=== PATIENT | male | born 1950 | race Caucasian/White ===

== ENCOUNTER 2017-07-04 10:09 | Inpatient (IN) | payer MEDICARE ==
[~2017-07-04] VITALS: Ht 167.6 cm; Wt 67.4 kg
[2017-07-04 10:30] LABS: ABG A-A DIFF O2 228.1 mmHg (10-20.0); ABG BASE EXCESS -22.3 mmol/L (-2.0-3.0); ABG CARBOXYHEMOGLOBIN 1.4 % (0.0-1.5); ABG HCO3 8.8 mmol/L (22.0-26.0); ABG METHEMOGLOBIN 0.3 % (0.0-1.5); ABG OXYGEN CONTENT 15.5 mL/dL (15.0-23.0); ABG OXYGEN SATURATION 99.7 % (95.0-98.0); ABG PCO2 34 mmHg (35-45); ABG PH 7.023 (7.35-7.450); ABG TOTAL HEMOGLOBIN 10.3 G/dL (12.0-18.0); O2 DEVICE,BLOOD GAS BAG VALVE MASK (ROOM AIR); PO2, ARTERIAL BG 453.1 mmHg (66.0-74.0); SITE, BLOOD GAS RT FEMORAL; SOURCE, BLOOD GAS ARTERIAL
[2017-07-04 11:14] LABS: BASOPHILS % (AUTO) 0.1 % (0.0-2.0); EOSINOPHILS # (AUTO) 0.01 K/uL (0.00-0.70); EOSINOPHILS % (AUTO) 0.13 % (1.0-6.0); HEMATOCRIT 29.9 % (41-53); HEMOGLOBIN 9.1 g/dL (13.5-17.5); LYMPHOCYTES # (AUTO) 0.5 K/uL (1.0-4.8); LYMPHOCYTES % (AUTO) 7.8 % (22.0-44.0); MEAN CORPUSCULAR HEMOGLOBIN 24.2 pg (26.0-34.0); MEAN CORPUSCULAR HGB CONC 30.4 G/dL (31.0-37.0); MEAN CORPUSCULAR VOLUME 79 fL (80-100); MONOCYTES # (AUTO) 0.2 K/uL (0.1-1.0); MONOCYTES % (AUTO) 3.5 % (2.0-9.0); NEUTROPHILS # (AUTO) 5.7 K/uL (1.8-7.7); PLATELET COUNT (AUTO) 123 K/uL (150-450); RED BLOOD CELL COUNT(AUTO) 3.77 MIL/uL (4.50-5.90); RED CELL DISTRIBUTION WIDTH 30.1 % (11.5-14.5)
[2017-07-04] MEDS ORDERED: PHENYLEPHRINE 200 MG/D5%-WATER 250 ML IV PRN (11:15)
[2017-07-04 11:19] LABS: ANION GAP 16 mmol/L (8-16); CARBON DIOXIDE 15 mmol/L (22-29); CHLORIDE 111 mmol/L (98-107); CREATININE 4.05 mg/dL (0.60-1.30); GLOMERULAR FILTR. RATE CALC 15 mL/min (>60); GLUCOSE,RANDOM 149 mg/dL (70-110); POTASSIUM 3.8 mmol/L (3.5-5.1); SODIUM SERUM 142 mmol/L (136-145); UREA NITROGEN, BLOOD 71 mg/dL (7-18)
[2017-07-04 11:20] LABS: NEUTROPHILS % (AUTO) 88.5 % (40.0-70.0)
[2017-07-04 11:27] LABS: TROPONIN I 0.04 ng/mL (0.00-0.05)
[2017-07-04 11:46] LABS: LACTIC ACID 2.3 mmol/L (0.4-2.0)
[2017-07-04 11:55] LABS: ALANINE AMINOTRANSFERASE 108 U/L (12-78); ALBUMIN 2.9 g/dL (3.4-5.0); ALKALINE PHOSPHATASE 115 U/L (46-116); ASPARTATE AMINOTRANSFERASE 167 U/L (15-37); BILIRUBIN,TOTAL 0.2 mg/dL (0.1-1.0); CREATINE KINASE MB 93.5 ng/mL (0-5); TOTAL PROTEIN, SERUM 7.7 g/dL (6.4-8.2)
[2017-07-04 11:59] LABS: CKMB RELATIVE INDEX 3.3 % (0.0-4.0); CREATINE KINASE, TOTAL 2873 U/L (39-308)
[2017-07-04 12:11] LABS: B-TYPE NATRIURETIC PEPTIDE 1560 pg/mL (0-100)
[2017-07-04 12:15] LABS: INR 1.3 (0.9-1.1); PROTHROMBIN TIME 14.1 SEC (9.4-11.6)
[2017-07-04] MEDS ORDERED: SODIUM BICARBONATE [ADULT] 8.4% 50 MEQ/50 ML SYRINGE IVP ONE (12:15)
[2017-07-04 12:35] LABS: AMPHET/METH SCREEN,URINE NEGATIVE (NEGATIVE); BARBITURATE SCREEN, URINE NEGATIVE (NEGATIVE); BENZODIAZEPINES SCREEN,URINE NEGATIVE (NEGATIVE); CANNABINOID SCREEN,URINE NEGATIVE (NEGATIVE); COCAINE SCREEN,URINE NEGATIVE (NEGATIVE); METHADONE SCREEN, URINE NEGATIVE (NEGATIVE); OPIATE SCREEN,URINE NEGATIVE (NEGATIVE)
[2017-07-04 12:36] LABS: PHENCYCLIDINE SCREEN,URINE NEGATIVE (NEGATIVE)
[2017-07-04 12:49] LABS: APPEARANCE,URINE TURBID (CLEAR); BILIRUBIN,URINE NEGATIVE (NEGATIVE); GLUCOSE, URINE (UA) NEGATIVE (NEGATIVE); KETONES,URINE TRACE mg/dL (NEGATIVE); LEUKOCYTE ESTERASE ,URINE LARGE (NEGATIVE); NITRATE,URINE NEGATIVE (NEGATIVE); OCCULT BLOOD,URINE LARGE (NEGATIVE); PROTEIN,URINE SEE CONFIRM (NEGATIVE); UROBILINOGEN,URINE 0.2 mg/dL (<=1.0)
[2017-07-04 13:01] LABS: BACTERIA,URINE Many /HPF (None Seen); RBC,URINE Full Field /HPF (0-2); SULFOSALICYLIC ACID,URINE 3+ (Negative); WBC,URINE Full Field /HPF (0-5)
[2017-07-04] MEDS: DOPamine HCL 400 MG/D5%-WATER 250 ML IV PRN (13:11)
[2017-07-04] MEDS: PROPOFOL 1000 MG/ISO-OSM 100 ML IV PRN (13:14)
[2017-07-04 13:41] LABS: ABG A-A DIFF O2 244.4 mmHg (10-20.0); ABG CARBOXYHEMOGLOBIN 1.8 % (0.0-1.5); ABG HCO3 15.5 mmol/L (22.0-26.0); ABG METHEMOGLOBIN 0.3 % (0.0-1.5); ABG OXYGEN CONTENT 13.2 mL/dL (15.0-23.0); ABG OXYGEN SATURATION 93.8 % (95.0-98.0); ABG OXYHEMOGLOBIN 91.8 % (94.0-100.0); ABG PCO2 37 mmHg (35-45); ABG PH 7.238 (7.35-7.450); ABG TOTAL HEMOGLOBIN 10.2 G/dL (12.0-18.0); SOURCE, BLOOD GAS ARTERIAL; TEMPERATURE, FAHRENHEIT, BG 97.8 FAHREN (96.0-98.6)
[2017-07-04 13:42] LABS: O2 DEVICE,BLOOD GAS VENTILATOR (ROOM AIR); PEEP,BG 5 cm H2O; SITE, BLOOD GAS LFT RADIAL; VT, ABG 500 ml
[2017-07-04] MEDS ORDERED: 0.9% SODIUM CHLORIDE 10 ML SYRINGE IVP PRN (13:45)
[2017-07-04] MEDS ORDERED: PIPERACILLIN/TAZO 3.375 GM/D5W 50 ML IV ONE (13:45)
[2017-07-04 16:52] LABS: LACTIC ACID 0.9 mmol/L (0.4-2.0)
[2017-07-04] MEDS ORDERED: SODIUM BICARBONATE 150 MEQ in DEXTROSE 5%-WATER 1,000 ML IV ONE (17:00)
[2017-07-04 17:03] LABS: GLUCOSE,POINT OF CARE 164 MG/DL (70-110)
[2017-07-04] MEDS ORDERED: VANCOMYCIN HCL 1.5 GM in DEXTROSE 5%-WATER 250 ML IV ONE (20:00)
[2017-07-04] MEDS ORDERED: SODIUM CHLORIDE 0.9% 250 ML IV ONE ×2 (20:15→22:18)
[2017-07-04] MEDS ORDERED: VANCOMYCIN HCL 1 GM/D5% WATER 200 ML IV PRN (21:15)
[2017-07-04] MEDS: PIPERACILLIN SODIUM/TAZOBACTAM 2.25 GM in DEXTROSE 5%-WATER 50 ML IV SCH (22:14)
[2017-07-04 22:36] LABS: ABG A-A DIFF O2 344.3 mmHg (10-20.0); ABG BASE EXCESS -14.4 mmol/L (-2.0-3.0); ABG CARBOXYHEMOGLOBIN 1.9 % (0.0-1.5); ABG HCO3 13.7 mmol/L (22.0-26.0); ABG METHEMOGLOBIN 0.4 % (0.0-1.5); ABG OXYGEN CONTENT 13.5 mL/dL (15.0-23.0); ABG OXYGEN SATURATION 94.8 % (95.0-98.0); ABG OXYHEMOGLOBIN 92.6 % (94.0-100.0); ABG PCO2 33 mmHg (35-45); ABG PH 7.223 (7.35-7.450); ABG TOTAL HEMOGLOBIN 10.3 G/dL (12.0-18.0); O2 DEVICE,BLOOD GAS VENTILATOR (ROOM AIR); PO2, ARTERIAL BG 55.6 mmHg (79.0-87.0); SITE, BLOOD GAS RT RADIAL; SOURCE, BLOOD GAS ARTERIAL; TEMPERATURE, FAHRENHEIT, BG 86.8 FAHREN (96.0-98.6); VT, ABG 500 ml
[2017-07-04 22:37] LABS: PEEP,BG 5 cm H2O
[2017-07-04 22:48] VITALS: BP 145/78
[2017-07-05] VITALS: BP 147/84
[2017-07-05] MEDS: PROPOFOL 1000 MG/ISO-OSM 100 ML IV PRN ×6 (01:19→20:23)
[2017-07-05 01:31] LABS: CALCIUM, TOTAL 7.8 mg/dL (8.8-10.5); CREATININE 3.98 mg/dL (0.60-1.30); POTASSIUM 4.1 mmol/L (3.5-5.1)
[2017-07-05 01:34] LABS: MAGNESIUM 1.9 mg/dL (1.80-2.40); PHOSPHORUS 6.1 mg/dL (2.5-4.9)
[2017-07-05] MEDS ORDERED: 0.9% SODIUM CHLORIDE 10 ML SYRINGE IVP PRN (03:00)
[2017-07-05] MEDS: PIPERACILLIN SODIUM/TAZOBACTAM 2.25 GM in DEXTROSE 5%-WATER 50 ML IV SCH ×4 (03:10→23:09)
[2017-07-05] MEDS: DOPamine HCL 400 MG/D5%-WATER 250 ML IV PRN (03:48)
[2017-07-05] MEDS ORDERED: SODIUM CHLORIDE 0.9% 500 ML IV ONE (03:56)
[2017-07-05 04:00] VITALS: BP 125/62
[2017-07-05 05:00] LABS: ABG A-A DIFF O2 352.8 mmHg (10-20.0); ABG BASE EXCESS -14.4 mmol/L (-2.0-3.0); ABG CARBOXYHEMOGLOBIN 1.6 % (0.0-1.5); ABG HCO3 13.7 mmol/L (22.0-26.0); ABG METHEMOGLOBIN 0.4 % (0.0-1.5); ABG OXYGEN CONTENT 12.8 mL/dL (15.0-23.0); ABG OXYGEN SATURATION 94.3 % (95.0-98.0); ABG OXYHEMOGLOBIN 92.4 % (94.0-100.0); ABG PCO2 30 mmHg (35-45); ABG PH 7.255 (7.35-7.450); ABG TOTAL HEMOGLOBIN 9.8 G/dL (12.0-18.0); PO2, ARTERIAL BG 51.3 mmHg (79.0-87.0); SOURCE, BLOOD GAS ARTERIAL
[2017-07-05 05:01] LABS: O2 DEVICE,BLOOD GAS VENTILATOR (ROOM AIR); PEEP,BG 5 cm H2O; SITE, BLOOD GAS RT RADIAL; VT, ABG 500 ml
[2017-07-05 05:23] LABS: INR 1.3 (0.9-1.1)
[2017-07-05 05:30] LABS: BASOPHILS # (AUTO) 0.01 K/uL (0.00-0.20); BASOPHILS % (AUTO) 0.1 % (0.0-2.0); EOSINOPHILS # (AUTO) 0.02 K/uL (0.00-0.70); EOSINOPHILS % (AUTO) 0.16 % (1.0-6.0); HEMATOCRIT 28.7 % (41-53); HEMOGLOBIN 8.9 g/dL (13.5-17.5); LYMPHOCYTES # (AUTO) 0.6 K/uL (1.0-4.8); MEAN CORPUSCULAR HEMOGLOBIN 24.4 pg (26.0-34.0); MEAN CORPUSCULAR VOLUME 79 fL (80-100); MONOCYTES # (AUTO) 0.5 K/uL (0.1-1.0); MONOCYTES % (AUTO) 3.7 % (2.0-9.0); NEUTROPHILS # (AUTO) 11.2 K/uL (1.8-7.7); PLATELET COUNT (AUTO) 138 K/uL (150-450); RED BLOOD CELL COUNT(AUTO) 3.64 MIL/uL (4.50-5.90); RED CELL DISTRIBUTION WIDTH 30.1 % (11.5-14.5)
[2017-07-05 05:47] LABS: ALBUMIN 2.5 g/dL (3.4-5.0); BILIRUBIN,TOTAL 0.6 mg/dL (0.1-1.0); CALCIUM, TOTAL 7.8 mg/dL (8.8-10.5); CREATININE 3.97 mg/dL (0.60-1.30); PHOSPHORUS 6.2 mg/dL (2.5-4.9); TOTAL PROTEIN, SERUM 6.8 g/dL (6.4-8.2)
[2017-07-05 08:00] VITALS: BP 117/68
[2017-07-05] MEDS: PANTOPRAZOLE SODIUM 40 MG/VIAL IVP SCH (08:09)
[2017-07-05] MEDS ORDERED: BUMETANIDE 0.25 MG/ML 4 ML VIAL IVP ONE (09:00)
[2017-07-05] MEDS: CITRIC ACID/SODIUM CITRATE 30 ML SOLUTION UDCUP NG SCH ×4 (09:54→20:22)
[2017-07-05] MEDS ORDERED: DEXTROSE 50%-WATER 25 GM/50 ML SYRINGE IVP PRN (10:45)
[2017-07-05 11:17] LABS: MEAN CORPUSCULAR HEMOGLOBIN 24.3 pg (26.0-34.0); MEAN CORPUSCULAR HGB CONC 31.1 G/dL (31.0-37.0); MEAN CORPUSCULAR VOLUME 78 fL (80-100); PLATELET COUNT (AUTO) 145 K/uL (150-450); RED BLOOD CELL COUNT(AUTO) 3.72 MIL/uL (4.50-5.90); RED CELL DISTRIBUTION WIDTH 29.9 % (11.5-14.5)
[2017-07-05 11:23] LABS: SOURCE, BLOOD GAS ARTERIAL
[2017-07-05 11:27] LABS: ABG A-A DIFF O2 349.8 mmHg (10-20.0); ABG HCO3 15.4 mmol/L (22.0-26.0); ABG METHEMOGLOBIN 0.2 % (0.0-1.5); ABG OXYGEN SATURATION 94.6 % (95.0-98.0); ABG OXYHEMOGLOBIN 93.5 % (94.0-100.0); ABG PCO2 30 mmHg (35-45); ABG PH 7.299 (7.35-7.450); ABG TOTAL HEMOGLOBIN 9.8 G/dL (12.0-18.0)
[2017-07-05 11:28] LABS: O2 DEVICE,BLOOD GAS VENTILATOR (ROOM AIR); PEEP,BG 5 cm H2O; SITE, BLOOD GAS RT RADIAL; VT, ABG 500 ml
[2017-07-05 11:36] LABS: ALBUMIN 2.4 g/dL (3.4-5.0); BILIRUBIN,TOTAL 0.6 mg/dL (0.1-1.0); CALCIUM, TOTAL 7.5 mg/dL (8.8-10.5); CREATININE 4.06 mg/dL (0.60-1.30); MAGNESIUM 1.9 mg/dL (1.80-2.40); PHOSPHORUS 5.8 mg/dL (2.5-4.9); POTASSIUM 3.8 mmol/L (3.5-5.1); TOTAL PROTEIN, SERUM 6.8 g/dL (6.4-8.2)
[2017-07-05] MEDS ORDERED: SODIUM CHLORIDE 0.9% 250 ML IV ONE ×2 (11:51→20:17)
[2017-07-05] MEDS: INSULIN ASPART 100 UNITS/ML SQ PRN ×2 (11:57→17:08)
[2017-07-05 12:00] VITALS: BP 110/74
[2017-07-05 12:17] LABS: BAND NEUTROPHILS % (MANUAL) 1 % (1-5); EOSINOPHILS % (MANUAL) 1 % (1-6); LYMPHOCYTES % (MANUAL) 5 % (22-44); MONOCYTES % (MANUAL) 4 % (2-9); SEGMENTED NEUTROPHILS % 89 % (40-70)
[2017-07-05 12:22] LABS: GLUCOSE,POINT OF CARE 308 MG/DL (70-110)
[2017-07-05] MEDS ORDERED: ALBUMIN HUMAN ONE (14:10)
[2017-07-05] MEDS: ALBUMIN HUMAN 25%-25GM/100ML 100 ML IV SCH ×3 (15:15→19:02)
[2017-07-05] MEDS: BUMETANIDE 0.25 MG/ML 4 ML VIAL IVP SCH ×2 (15:17→20:22)
[2017-07-05 15:36] LABS: INFLUENZA TYPE A NEGATIVE FOR TYPE A (NEGATIVE); INFLUENZA TYPE B NEGATIVE FOR TYPE B (NEGATIVE)
[2017-07-05] MEDS ORDERED: PHENYLEPHRINE 200 MG/D5%-WATER 250 ML IV PRN (15:50)
[2017-07-05] MEDS ORDERED: DOPamine HCL 400 MG/D5%-WATER 250 ML IV PRN (15:50)
[2017-07-05 16:00] VITALS: BP 93/68
[2017-07-05] MEDS: NOREPINEPHRINE 4 MG/D5%-WATER 250 ML IV PRN (16:13)
[2017-07-05 18:28] LABS: HEMATOCRIT 26.1 % (41-53); HEMOGLOBIN 8.2 g/dL (13.5-17.5); MEAN CORPUSCULAR HEMOGLOBIN 24.2 pg (26.0-34.0); MEAN CORPUSCULAR HGB CONC 31.4 G/dL (31.0-37.0); MEAN CORPUSCULAR VOLUME 77 fL (80-100); PLATELET COUNT (AUTO) 144 K/uL (150-450); RED BLOOD CELL COUNT(AUTO) 3.39 MIL/uL (4.50-5.90); RED CELL DISTRIBUTION WIDTH 29.3 % (11.5-14.5)
[2017-07-05 18:52] LABS: CALCIUM, TOTAL 7.2 mg/dL (8.8-10.5); CREATININE 4.13 mg/dL (0.60-1.30); MAGNESIUM 1.7 mg/dL (1.80-2.40); PHOSPHORUS 5.2 mg/dL (2.5-4.9); POTASSIUM 3.5 mmol/L (3.5-5.1)
[2017-07-05 19:32] LABS: BAND NEUTROPHILS % (MANUAL) 11 % (1-5); LYMPHOCYTES % (MANUAL) 7 % (22-44); MONOCYTES % (MANUAL) 4 % (2-9); SEGMENTED NEUTROPHILS % 78 % (40-70)
[2017-07-05 19:33] LABS: PLATELET MORPHOLOGY COMMENT LARGE PLTS PRESENT
[2017-07-05 20:00] VITALS: BP 113/67
[2017-07-05] MEDS: MUPIROCIN CALCIUM 2% 22 GM OINTMENT NASAL SCH (20:22)
[2017-07-05] MEDS: LEVOFLOXACIN 250 MG/D5% WATER 50 ML IV SCH (20:22)
[2017-07-06] VITALS: BP 112/65
[2017-07-06] MEDS: NOREPINEPHRINE 4 MG/D5%-WATER 250 ML IV PRN ×3 (00:20→17:28)
[2017-07-06] MEDS: PROPOFOL 1000 MG/ISO-OSM 100 ML IV PRN ×6 (00:57→20:28)
[2017-07-06] MEDS: INSULIN ASPART 100 UNITS/ML SQ PRN ×2 (01:29→06:48)
[2017-07-06 04:00] VITALS: BP 109/65
[2017-07-06 05:12] LABS: GLUCOSE,POINT OF CARE 293 MG/DL (70-110)
[2017-07-06 05:33] LABS: GLUCOSE,POINT OF CARE 219 MG/DL (70-110)
[2017-07-06 05:38] LABS: ALBUMIN 2.8 g/dL (3.4-5.0); BILIRUBIN,TOTAL 0.5 mg/dL (0.1-1.0); CALCIUM, TOTAL 6.8 mg/dL (8.8-10.5); CREATININE 4.34 mg/dL (0.60-1.30); MAGNESIUM 1.6 mg/dL (1.80-2.40); POTASSIUM 3.6 mmol/L (3.5-5.1); TOTAL PROTEIN, SERUM 6.6 g/dL (6.4-8.2); VANCOMYCIN,RANDOM 17.4 mcg/mL (25.0-50.0)
[2017-07-06 07:07] LABS: GLUCOSE,POINT OF CARE 209 MG/DL (70-110)
[2017-07-06] MEDS ORDERED: SODIUM CHLORIDE 0.9% 250 ML IV ONE (07:49)
[2017-07-06 08:00] VITALS: BP 107/62
[2017-07-06] MEDS: PANTOPRAZOLE SODIUM 40 MG/VIAL IVP SCH (08:00)
[2017-07-06] MEDS ORDERED: MAGNESIUM SULFATE 1 GM in DEXTROSE 5%-WATER 50 ML IV ONE (08:00)
[2017-07-06] MEDS: PIPERACILLIN SODIUM/TAZOBACTAM 2.25 GM in DEXTROSE 5%-WATER 50 ML IV SCH ×3 (08:00→23:20)
[2017-07-06] MEDS: MUPIROCIN CALCIUM 2% 22 GM OINTMENT NASAL SCH ×2 (08:01→20:30)
[2017-07-06] MEDS: CITRIC ACID/SODIUM CITRATE 30 ML SOLUTION UDCUP NG SCH ×3 (08:01→20:27)
[2017-07-06] MEDS: BUMETANIDE 0.25 MG/ML 4 ML VIAL IVP SCH ×3 (08:01→20:28)
[2017-07-06] MEDS ORDERED: CALCIUM GLUCONATE 1,000 MG in DEXTROSE 5%-WATER 50 ML IV ONE (08:40)
[2017-07-06 08:58] LABS: PHOSPHORUS 5.2 mg/dL (2.5-4.9)
[2017-07-06] MEDS ORDERED: VANCOMYCIN HCL 1 GM/D5% WATER 200 ML IV ONE (09:00)
[2017-07-06 11:07] LABS: HEMATOCRIT 25.5 % (41-53); MEAN CORPUSCULAR HEMOGLOBIN 24.5 pg (26.0-34.0); MEAN CORPUSCULAR HGB CONC 31.5 G/dL (31.0-37.0); MEAN CORPUSCULAR VOLUME 78 fL (80-100); PLATELET COUNT (AUTO) 155 K/uL (150-450); RED BLOOD CELL COUNT(AUTO) 3.28 MIL/uL (4.50-5.90); RED CELL DISTRIBUTION WIDTH 30.2 % (11.5-14.5)
[2017-07-06] MEDS ORDERED: ASPIRIN 81 MG EC TABLET PO SCH (11:15)
[2017-07-06 11:30] LABS: BAND NEUTROPHILS % (MANUAL) 18 % (1-5); LYMPHOCYTES % (MANUAL) 7 % (22-44); MONOCYTES % (MANUAL) 3 % (2-9); SEGMENTED NEUTROPHILS % 72 % (40-70)
[2017-07-06 12:00] VITALS: BP 102/54
[2017-07-06] MEDS: INSULIN REGULAR, HUMAN 100 UNITS/ML SQ PRN ×2 (12:03→17:29)
[2017-07-06] MEDS: PRAVASTATIN SODIUM 20 MG TABLET PO SCH (12:58)
[2017-07-06] MEDS: ASPIRIN 81 MG CHEWABLE TABLET PO SCH (12:58)
[2017-07-06] MEDS ORDERED: LIDOCAINE HCL/PF 2% 5 ML SYRINGE IVP ONE (14:49)
[2017-07-06] MEDS ORDERED: SODIUM BICARBONATE [ADULT] 8.4% 50 MEQ/50 ML SYRINGE IVP ONE (14:49)
[2017-07-06] MEDS ORDERED: EPINEPHrine 1:10,000 [1 MG/10 ML] SYRINGE IVP ONE (14:49)
[2017-07-06 16:00] VITALS: BP 110/63
[2017-07-06 20:00] VITALS: BP 86/59
[2017-07-06] MEDS: LEVOFLOXACIN 250 MG/D5% WATER 50 ML IV SCH (20:29)
[2017-07-07] VITALS: BP 118/69
[2017-07-07] MEDS: INSULIN REGULAR, HUMAN 100 UNITS/ML SQ PRN ×3 (00:16→13:17)
[2017-07-07] MEDS: PROPOFOL 1000 MG/ISO-OSM 100 ML IV PRN ×3 (00:19→21:06)
[2017-07-07 04:00] VITALS: BP 119/47
[2017-07-07] MEDS ORDERED: SODIUM CHLORIDE 0.9% 500 ML IV ONE (04:28)
[2017-07-07 04:52] LABS: GLUCOSE,POINT OF CARE 196 MG/DL (70-110)
[2017-07-07 04:52] LABS: GLUCOSE,POINT OF CARE 192 MG/DL (70-110)
[2017-07-07 04:52] LABS: GLUCOSE,POINT OF CARE 213 MG/DL (70-110)
[2017-07-07 04:52] LABS: GLUCOSE,POINT OF CARE 235 MG/DL (70-110)
[2017-07-07 06:01] LABS: BASOPHILS % (AUTO) 0.1 % (0.0-2.0); HEMATOCRIT 24.4 % (41-53); HEMOGLOBIN 7.8 g/dL (13.5-17.5); LYMPHOCYTES # (AUTO) 0.5 K/uL (1.0-4.8); LYMPHOCYTES % (AUTO) 4.1 % (22.0-44.0); MEAN CORPUSCULAR HEMOGLOBIN 24.6 pg (26.0-34.0); MEAN CORPUSCULAR HGB CONC 31.8 G/dL (31.0-37.0); MEAN CORPUSCULAR VOLUME 77 fL (80-100); MONOCYTES % (AUTO) 7.7 % (2.0-9.0); NEUTROPHILS # (AUTO) 10.9 K/uL (1.8-7.7); PLATELET COUNT (AUTO) 135 K/uL (150-450); RED BLOOD CELL COUNT(AUTO) 3.16 MIL/uL (4.50-5.90); RED CELL DISTRIBUTION WIDTH 29.8 % (11.5-14.5)
[2017-07-07 06:57] LABS: NEUTROPHILS % (AUTO) 87.1 % (40.0-70.0)
[2017-07-07 06:58] LABS: ALBUMIN 2.4 g/dL (3.4-5.0); BILIRUBIN,TOTAL 0.4 mg/dL (0.1-1.0); CALCIUM, TOTAL 7.2 mg/dL (8.8-10.5); CREATININE 4.69 mg/dL (0.60-1.30); MAGNESIUM 1.8 mg/dL (1.80-2.40); TOTAL PROTEIN, SERUM 6.4 g/dL (6.4-8.2)
[2017-07-07 07:23] LABS: POTASSIUM 2.9 mmol/L (3.5-5.1)
[2017-07-07 07:45] LABS: VANCOMYCIN,RANDOM 25.8 mcg/mL (25.0-50.0)
[2017-07-07 08:00] VITALS: BP 114/47
[2017-07-07] MEDS: PIPERACILLIN SODIUM/TAZOBACTAM 2.25 GM in DEXTROSE 5%-WATER 50 ML IV SCH ×2 (08:05→16:09)
[2017-07-07] MEDS: POTASSIUM CHL 10 MEQ/WATER 50 ML IV SCH ×3 (08:06→11:35)
[2017-07-07] MEDS ORDERED: SODIUM CHLORIDE 0.9% 250 ML IV ONE (08:48)
[2017-07-07] MEDS: PANTOPRAZOLE SODIUM 40 MG/VIAL IVP SCH (08:51)
[2017-07-07] MEDS: BUMETANIDE 0.25 MG/ML 4 ML VIAL IVP SCH (08:51)
[2017-07-07] MEDS: CITRIC ACID/SODIUM CITRATE 30 ML SOLUTION UDCUP NG SCH ×2 (08:52→21:04)
[2017-07-07] MEDS: PRAVASTATIN SODIUM 20 MG TABLET PO SCH (08:52)
[2017-07-07] MEDS: ASPIRIN 81 MG CHEWABLE TABLET PO SCH (08:52)
[2017-07-07] MEDS: MUPIROCIN CALCIUM 2% 22 GM OINTMENT NASAL SCH ×2 (08:52→21:04)
[2017-07-07] MEDS: NOREPINEPHRINE 4 MG/D5%-WATER 250 ML IV PRN (11:37)
[2017-07-07 12:00] VITALS: BP 118/69
[2017-07-07 15:32] LABS: GLUCOSE,POINT OF CARE 194 MG/DL (70-110)
[2017-07-07 16:00] VITALS: BP 107/39
[2017-07-07 17:53] LABS: GLUCOSE,POINT OF CARE 183 MG/DL (70-110)
[2017-07-07 20:00] VITALS: BP 116/76
[2017-07-07] MEDS: LEVOFLOXACIN 250 MG/D5% WATER 50 ML IV SCH (20:43)
[2017-07-08] VITALS: BP 112/53
[2017-07-08] MEDS: PIPERACILLIN SODIUM/TAZOBACTAM 2.25 GM in DEXTROSE 5%-WATER 50 ML IV SCH ×3 (00:41→16:48)
[2017-07-08] MEDS: INSULIN REGULAR, HUMAN 100 UNITS/ML SQ PRN ×4 (00:42→18:26)
[2017-07-08 04:00] VITALS: BP 114/47
[2017-07-08 05:06] LABS: EOSINOPHILS # (AUTO) 0.32 K/uL (0.00-0.70); EOSINOPHILS % (AUTO) 2.94 % (1.0-6.0); HEMATOCRIT 23.9 % (41-53); HEMOGLOBIN 7.6 g/dL (13.5-17.5); LYMPHOCYTES # (AUTO) 0.6 K/uL (1.0-4.8); LYMPHOCYTES % (AUTO) 5.2 % (22.0-44.0); MEAN CORPUSCULAR HEMOGLOBIN 24.2 pg (26.0-34.0); MEAN CORPUSCULAR HGB CONC 31.8 G/dL (31.0-37.0); MEAN CORPUSCULAR VOLUME 76 fL (80-100); MONOCYTES # (AUTO) 0.9 K/uL (0.1-1.0); MONOCYTES % (AUTO) 8.1 % (2.0-9.0); NEUTROPHILS # (AUTO) 9.2 K/uL (1.8-7.7); NEUTROPHILS % (AUTO) 83.8 % (40.0-70.0); PLATELET COUNT (AUTO) 119 K/uL (150-450); RED BLOOD CELL COUNT(AUTO) 3.13 MIL/uL (4.50-5.90); RED CELL DISTRIBUTION WIDTH 30.1 % (11.5-14.5)
[2017-07-08 05:28] LABS: ALBUMIN 2.2 g/dL (3.4-5.0); BILIRUBIN,TOTAL 0.4 mg/dL (0.1-1.0); CALCIUM, TOTAL 7.6 mg/dL (8.8-10.5); CREATININE 4.82 mg/dL (0.60-1.30); MAGNESIUM 1.8 mg/dL (1.80-2.40); POTASSIUM 3.5 mmol/L (3.5-5.1); TOTAL PROTEIN, SERUM 6.7 g/dL (6.4-8.2)
[2017-07-08 05:53] LABS: GLUCOSE,POINT OF CARE 182 MG/DL (70-110)
[2017-07-08] MEDS: PROPOFOL 1000 MG/ISO-OSM 100 ML IV PRN (06:05)
[2017-07-08] MEDS: AMINO ACIDS/PROTEIN HYDROLYS 30 ML TUBE PO SCH (07:24)
[2017-07-08 08:00] VITALS: BP 114/62
[2017-07-08] MEDS ORDERED: VANCOMYCIN HCL 1 GM/D5% WATER 200 ML IV ONE (08:00)
[2017-07-08] MEDS ORDERED: BUMETANIDE 0.25 MG/ML 4 ML VIAL IVP SCH (09:00)
[2017-07-08] MEDS: PANTOPRAZOLE SODIUM 40 MG/VIAL IVP SCH (09:16)
[2017-07-08] MEDS: MUPIROCIN CALCIUM 2% 22 GM OINTMENT NASAL SCH ×2 (09:17→20:37)
[2017-07-08] MEDS: PRAVASTATIN SODIUM 20 MG TABLET PO SCH (09:18)
[2017-07-08] MEDS: MULTIVITAMINS WITH MINERALS, THERAPEUTIC 15 ML UDCUP NG SCH (09:18)
[2017-07-08] MEDS: ASPIRIN 81 MG CHEWABLE TABLET PO SCH (09:18)
[2017-07-08] MEDS: CITRIC ACID/SODIUM CITRATE 30 ML SOLUTION UDCUP NG SCH ×2 (09:18→20:38)
[2017-07-08 10:10] LABS: ABG A-A DIFF O2 86.7 mmHg (10-20.0); ABG BASE EXCESS -4.7 mmol/L (-2.0-3.0); ABG CARBOXYHEMOGLOBIN 3.3 % (0.0-1.5); ABG HCO3 20.9 mmol/L (22.0-26.0); ABG METHEMOGLOBIN 0.1 % (0.0-1.5); ABG OXYGEN CONTENT 10.4 mL/dL (15.0-23.0); ABG OXYGEN SATURATION 96.6 % (95.0-98.0); ABG OXYHEMOGLOBIN 93.3 % (94.0-100.0); ABG PCO2 36 mmHg (35-45); ABG PH 7.371 (7.35-7.450); PO2, ARTERIAL BG 84.4 mmHg (79.0-87.0); SOURCE, BLOOD GAS ARTERIAL; TEMPERATURE, FAHRENHEIT, BG 98.6 FAHREN (96.0-98.6)
[2017-07-08 10:22] LABS: ABG TOTAL HEMOGLOBIN 7.8 G/dL (12.0-18.0)
[2017-07-08 10:23] LABS: O2 DEVICE,BLOOD GAS VENTILATOR (ROOM AIR); SITE, BLOOD GAS RT RADIAL
[2017-07-08 10:24] LABS: PEEP,BG 5 cm H2O; VT, ABG 500 ml
[2017-07-08 12:00] VITALS: BP 113/55
[2017-07-08 12:23] LABS: GLUCOSE,POINT OF CARE 179 MG/DL (70-110)
[2017-07-08 12:41] LABS: ABG A-A DIFF O2 90.6 mmHg (10-20.0); ABG BASE EXCESS -5.3 mmol/L (-2.0-3.0); ABG CARBOXYHEMOGLOBIN 1.1 % (0.0-1.5); ABG HCO3 20.5 mmol/L (22.0-26.0); ABG METHEMOGLOBIN 0.3 % (0.0-1.5); ABG OXYGEN SATURATION 95.9 % (95.0-98.0); ABG OXYHEMOGLOBIN 94.6 % (94.0-100.0); ABG PCO2 33 mmHg (35-45); ABG PH 7.392 (7.35-7.450); ABG TOTAL HEMOGLOBIN 8.2 G/dL (12.0-18.0); PO2, ARTERIAL BG 84.4 mmHg (79.0-87.0); SOURCE, BLOOD GAS ARTERIAL; TEMPERATURE, FAHRENHEIT, BG 98.6 FAHREN (96.0-98.6)
[2017-07-08 12:42] LABS: CPAP, BG 0 cm H2O; O2 DEVICE,BLOOD GAS VENTILATOR (ROOM AIR); PEEP,BG 0 cm H2O; PRESSURE SUPPORT, BG 8 cm H2O; SITE, BLOOD GAS RT RADIAL; SPONTANEOUS VT, BG 720 ml; VENT MODE, BG SPONTANEOUS (ROOM AIR)
[2017-07-08 14:53] LABS: C.DIFF TOXINS A&B, Stool Negative (Negative)
[2017-07-08 14:55] LABS: C.DIFF GDH ANTIGEN, Stool Positive (Negative)
[2017-07-08 16:00] VITALS: BP 103/40
[2017-07-08 20:00] VITALS: BP 114/55
[2017-07-08 20:12] LABS: GLUCOSE,POINT OF CARE 178 MG/DL (70-110)
[2017-07-08 20:12] LABS: GLUCOSE,POINT OF CARE 171 MG/DL (70-110)
[2017-07-08] MEDS: LEVOFLOXACIN 250 MG/D5% WATER 50 ML IV SCH (20:37)
[2017-07-08] MEDS ORDERED: SODIUM CHLORIDE 0.9% 50 ML ONE (22:26)
[2017-07-08] MEDS: MetroNIDAZOLE 500 MG TABLET PO SCH (23:42)
[2017-07-09] VITALS: BP 111/65
[2017-07-09] MEDS: PROPOFOL 1000 MG/ISO-OSM 100 ML IV PRN (02:29)
[2017-07-09 04:00] VITALS: BP 115/55
[2017-07-09 05:16] LABS: BASOPHILS % (AUTO) 0.1 % (0.0-2.0); EOSINOPHILS % (AUTO) 3.2 % (1.0-6.0); HEMOGLOBIN 7.3 g/dL (13.5-17.5); LYMPHOCYTES # (AUTO) 0.7 K/uL (1.0-4.8); LYMPHOCYTES % (AUTO) 6.9 % (22.0-44.0); MEAN CORPUSCULAR HEMOGLOBIN 24.4 pg (26.0-34.0); MEAN CORPUSCULAR HGB CONC 31.6 G/dL (31.0-37.0); MEAN CORPUSCULAR VOLUME 77 fL (80-100); MONOCYTES # (AUTO) 0.7 K/uL (0.1-1.0); MONOCYTES % (AUTO) 7.6 % (2.0-9.0); NEUTROPHILS % (AUTO) 82.2 % (40.0-70.0); PLATELET COUNT (AUTO) 126 K/uL (150-450); RED BLOOD CELL COUNT(AUTO) 2.97 MIL/uL (4.50-5.90); RED CELL DISTRIBUTION WIDTH 29.8 % (11.5-14.5)
[2017-07-09 05:22] LABS: ALBUMIN 2.2 g/dL (3.4-5.0); BILIRUBIN,TOTAL 0.4 mg/dL (0.1-1.0); CALCIUM, TOTAL 8.2 mg/dL (8.8-10.5); CREATININE 4.65 mg/dL (0.60-1.30); MAGNESIUM 1.8 mg/dL (1.80-2.40); POTASSIUM 3.2 mmol/L (3.5-5.1); TOTAL PROTEIN, SERUM 6.8 g/dL (6.4-8.2)
[2017-07-09] MEDS: INSULIN REGULAR, HUMAN 100 UNITS/ML SQ PRN ×4 (05:54→17:27)
[2017-07-09 06:07] LABS: GLUCOSE,POINT OF CARE 143 MG/DL (70-110)
[2017-07-09 06:08] LABS: GLUCOSE,POINT OF CARE 162 MG/DL (70-110)
[2017-07-09] MEDS: MetroNIDAZOLE 500 MG TABLET PO SCH ×2 (07:18→16:29)
[2017-07-09] MEDS: AMINO ACIDS/PROTEIN HYDROLYS 30 ML TUBE PO SCH (07:18)
[2017-07-09 08:00] VITALS: BP 112/50
[2017-07-09] MEDS: ASPIRIN 81 MG CHEWABLE TABLET PO SCH (08:00)
[2017-07-09] MEDS: PRAVASTATIN SODIUM 20 MG TABLET PO SCH (08:00)
[2017-07-09] MEDS: PANTOPRAZOLE SODIUM 40 MG/VIAL IVP SCH (08:00)
[2017-07-09] MEDS: MULTIVITAMINS WITH MINERALS, THERAPEUTIC 15 ML UDCUP NG SCH (08:00)
[2017-07-09] MEDS: CITRIC ACID/SODIUM CITRATE 30 ML SOLUTION UDCUP NG SCH ×2 (08:00→20:30)
[2017-07-09] MEDS: MUPIROCIN CALCIUM 2% 22 GM OINTMENT NASAL SCH ×2 (08:00→20:31)
[2017-07-09] MEDS: POTASSIUM CHL 10 MEQ/WATER 50 ML IV SCH ×2 (08:01→09:10)
[2017-07-09 08:13] LABS: ABG A-A DIFF O2 114.3 mmHg (10-20.0); ABG BASE EXCESS -4.4 mmol/L (-2.0-3.0); ABG CARBOXYHEMOGLOBIN 1.6 % (0.0-1.5); ABG METHEMOGLOBIN 0.5 % (0.0-1.5); ABG OXYGEN CONTENT 9.6 mL/dL (15.0-23.0); ABG OXYHEMOGLOBIN 86.2 % (94.0-100.0); ABG PCO2 37 mmHg (35-45); ABG PH 7.368 (7.35-7.450); PO2, ARTERIAL BG 56.1 mmHg (79.0-87.0); SOURCE, BLOOD GAS ARTERIAL; TEMPERATURE, FAHRENHEIT, BG 97.9 FAHREN (96.0-98.6)
[2017-07-09 08:14] LABS: ABG TOTAL HEMOGLOBIN 7.9 G/dL (12.0-18.0); O2 DEVICE,BLOOD GAS VENTILATOR (ROOM AIR); PEEP,BG 5 cm H2O; SITE, BLOOD GAS RT RADIAL; VT, ABG 500 ml
[2017-07-09 10:27] LABS: ABG A-A DIFF O2 88.3 mmHg (10-20.0); ABG BASE EXCESS -3.5 mmol/L (-2.0-3.0); ABG CARBOXYHEMOGLOBIN 1.2 % (0.0-1.5); ABG HCO3 21.8 mmol/L (22.0-26.0); ABG METHEMOGLOBIN 0.4 % (0.0-1.5); ABG OXYGEN CONTENT 10.7 mL/dL (15.0-23.0); ABG OXYGEN SATURATION 96.1 % (95.0-98.0); ABG OXYHEMOGLOBIN 94.6 % (94.0-100.0); ABG PCO2 36 mmHg (35-45); ABG PH 7.391 (7.35-7.450); PO2, ARTERIAL BG 83.3 mmHg (79.0-87.0); SOURCE, BLOOD GAS ARTERIAL; TEMPERATURE, FAHRENHEIT, BG 97.9 FAHREN (96.0-98.6)
[2017-07-09 10:28] LABS: ABG TOTAL HEMOGLOBIN 7.9 G/dL (12.0-18.0); O2 DEVICE,BLOOD GAS VENTILATOR (ROOM AIR); PEEP,BG 5 cm H2O; PRESSURE SUPPORT, BG 8 cm H2O; SITE, BLOOD GAS RT RADIAL; SPONTANEOUS VT, BG 705 ml; VENT MODE, BG SPONTANEOUS (ROOM AIR)
[2017-07-09 12:00] VITALS: BP 138/66
[2017-07-09 16:00] VITALS: BP 136/51
[2017-07-09] MEDS ORDERED: SODIUM CHLORIDE 0.9% 500 ML IV ONE (17:40)
[2017-07-09 17:58] LABS: GLUCOSE,POINT OF CARE 184 MG/DL (70-110)
[2017-07-09 18:22] LABS: GLUCOSE,POINT OF CARE 201 MG/DL (70-110)
[2017-07-09 20:00] VITALS: BP 107/63
[2017-07-09] MEDS: FUROSEMIDE 40 MG/4 ML VIAL IVP SCH (20:30)
[2017-07-09] MEDS: CefTRIAXone SODIUM 2 GM in DEXTROSE 5%-WATER 50 ML IV SCH (20:30)
[2017-07-10] VITALS: BP 125/71
[2017-07-10] MEDS: MetroNIDAZOLE 500 MG TABLET PO SCH ×3 (00:14→16:42)
[2017-07-10] MEDS: INSULIN REGULAR, HUMAN 100 UNITS/ML SQ PRN ×4 (00:15→17:51)
[2017-07-10 04:00] VITALS: BP 114/56
[2017-07-10 05:27] LABS: BASOPHILS % (AUTO) 0.1 % (0.0-2.0); EOSINOPHILS % (AUTO) 5.26 % (1.0-6.0); HEMATOCRIT 23.4 % (41-53); HEMOGLOBIN 7.1 g/dL (13.5-17.5); LYMPHOCYTES # (AUTO) 0.9 K/uL (1.0-4.8); LYMPHOCYTES % (AUTO) 11.3 % (22.0-44.0); MEAN CORPUSCULAR HGB CONC 30.5 G/dL (31.0-37.0); MEAN CORPUSCULAR VOLUME 79 fL (80-100); MONOCYTES # (AUTO) 0.7 K/uL (0.1-1.0); MONOCYTES % (AUTO) 9.3 % (2.0-9.0); NEUTROPHILS # (AUTO) 5.6 K/uL (1.8-7.7); NEUTROPHILS % (AUTO) 74.1 % (40.0-70.0); PLATELET COUNT (AUTO) 123 K/uL (150-450); RED BLOOD CELL COUNT(AUTO) 2.97 MIL/uL (4.50-5.90); RED CELL DISTRIBUTION WIDTH 29.6 % (11.5-14.5)
[2017-07-10 05:53] LABS: ALBUMIN 2.3 g/dL (3.4-5.0); BILIRUBIN,TOTAL 0.3 mg/dL (0.1-1.0); CALCIUM, TOTAL 8.3 mg/dL (8.8-10.5); CREATININE 4.35 mg/dL (0.60-1.30); MAGNESIUM 1.9 mg/dL (1.80-2.40); POTASSIUM 3.4 mmol/L (3.5-5.1); TOTAL PROTEIN, SERUM 7.1 g/dL (6.4-8.2); VANCOMYCIN,RANDOM 24.9 mcg/mL (25.0-50.0)
[2017-07-10 08:00] VITALS: BP 122/79
[2017-07-10] MEDS: FUROSEMIDE 40 MG/4 ML VIAL IVP SCH ×2 (09:15→20:01)
[2017-07-10] MEDS: PANTOPRAZOLE SODIUM 40 MG/VIAL IVP SCH (09:15)
[2017-07-10] MEDS: MUPIROCIN CALCIUM 2% 22 GM OINTMENT NASAL SCH ×2 (09:16→20:02)
[2017-07-10] MEDS: MULTIVITAMINS WITH MINERALS, THERAPEUTIC 15 ML UDCUP NG SCH (09:16)
[2017-07-10] MEDS: ASPIRIN 81 MG CHEWABLE TABLET PO SCH (09:16)
[2017-07-10] MEDS: PRAVASTATIN SODIUM 20 MG TABLET PO SCH (09:19)
[2017-07-10] MEDS: AMINO ACIDS/PROTEIN HYDROLYS 30 ML TUBE PO SCH (09:20)
[2017-07-10] MEDS: CITRIC ACID/SODIUM CITRATE 30 ML SOLUTION UDCUP NG SCH (09:21)
[2017-07-10] MEDS ORDERED: MAGNESIUM SULFATE 1 GM in DEXTROSE 5%-WATER 50 ML IV ONE (10:45)
[2017-07-10] MEDS ORDERED: POTASSIUM CHLORIDE 10% 40 MEQ/30 ML LIQUID UDCUP NG ONE (10:45)
[2017-07-10 12:00] VITALS: BP 127/83
[2017-07-10 16:00] VITALS: BP 114/76
[2017-07-10 16:48] LABS: GLUCOSE,POINT OF CARE 180 MG/DL (70-110)
[2017-07-10 16:48] LABS: GLUCOSE,POINT OF CARE 186 MG/DL (70-110)
[2017-07-10 16:48] LABS: GLUCOSE,POINT OF CARE 170 MG/DL (70-110)
[2017-07-10 20:00] VITALS: BP 113/66
[2017-07-10] MEDS: CefTRIAXone SODIUM 2 GM in DEXTROSE 5%-WATER 50 ML IV SCH (20:01)
[2017-07-10] MEDS ORDERED: SODIUM CHLORIDE 0.9% 500 ML IV ONE (21:55)
[2017-07-11] VITALS: BP 125/72
[2017-07-11] MEDS: INSULIN REGULAR, HUMAN 100 UNITS/ML SQ PRN ×5 (01:25→23:22)
[2017-07-11] MEDS: MetroNIDAZOLE 500 MG TABLET PO SCH ×4 (01:25→23:11)
[2017-07-11 04:00] VITALS: BP 125/72
[2017-07-11 05:45] LABS: BASOPHILS % (AUTO) 0.3 % (0.0-2.0); EOSINOPHILS % (AUTO) 5.5 % (1.0-6.0); HEMATOCRIT 24.4 % (41-53); HEMOGLOBIN 7.6 g/dL (13.5-17.5); LYMPHOCYTES # (AUTO) 1.1 K/uL (1.0-4.8); LYMPHOCYTES % (AUTO) 12.4 % (22.0-44.0); MEAN CORPUSCULAR HEMOGLOBIN 24.4 pg (26.0-34.0); MEAN CORPUSCULAR HGB CONC 31.2 G/dL (31.0-37.0); MEAN CORPUSCULAR VOLUME 78 fL (80-100); MONOCYTES # (AUTO) 0.7 K/uL (0.1-1.0); NEUTROPHILS # (AUTO) 6.3 K/uL (1.8-7.7); NEUTROPHILS % (AUTO) 73.8 % (40.0-70.0); PLATELET COUNT (AUTO) 122 K/uL (150-450); RED BLOOD CELL COUNT(AUTO) 3.13 MIL/uL (4.50-5.90); RED CELL DISTRIBUTION WIDTH 28.8 % (11.5-14.5)
[2017-07-11 06:29] LABS: CALCIUM, TOTAL 8.7 mg/dL (8.8-10.5); CREATININE 4.3 mg/dL (0.60-1.30); POTASSIUM 3.7 mmol/L (3.5-5.1)
[2017-07-11 08:00] VITALS: BP 121/76
[2017-07-11] MEDS ORDERED: VANCOMYCIN HCL 1 GM/D5% WATER 200 ML IV ONE (08:00)
[2017-07-11 08:07] LABS: MAGNESIUM 2.1 mg/dL (1.80-2.40)
[2017-07-11] MEDS: AMINO ACIDS/PROTEIN HYDROLYS 30 ML TUBE PO SCH (08:43)
[2017-07-11] MEDS: FUROSEMIDE 40 MG/4 ML VIAL IVP SCH (08:43)
[2017-07-11] MEDS: PRAVASTATIN SODIUM 20 MG TABLET PO SCH (08:43)
[2017-07-11] MEDS: ASPIRIN 81 MG CHEWABLE TABLET PO SCH (08:44)
[2017-07-11] MEDS: PANTOPRAZOLE SODIUM 40 MG/VIAL IVP SCH (08:44)
[2017-07-11] MEDS: MULTIVITAMINS WITH MINERALS, THERAPEUTIC 15 ML UDCUP NG SCH (08:44)
[2017-07-11] MEDS: MUPIROCIN CALCIUM 2% 22 GM OINTMENT NASAL SCH ×2 (08:45→20:34)
[2017-07-11 12:00] VITALS: BP 114/65
[2017-07-11 16:00] VITALS: BP 119/75
[2017-07-11 19:28] LABS: GLUCOSE,POINT OF CARE 199 MG/DL (70-110)
[2017-07-11 19:28] LABS: GLUCOSE,POINT OF CARE 240 MG/DL (70-110)
[2017-07-11 19:28] LABS: GLUCOSE,POINT OF CARE 215 MG/DL (70-110)
[2017-07-11 19:28] LABS: GLUCOSE,POINT OF CARE 170 MG/DL (70-110)
[2017-07-11 19:28] LABS: GLUCOSE,POINT OF CARE 174 MG/DL (70-110)
[2017-07-11 20:00] VITALS: BP 119/76
[2017-07-11] MEDS: CefTRIAXone SODIUM 2 GM in DEXTROSE 5%-WATER 50 ML IV SCH (20:34)
[2017-07-12] VITALS (7 sets, daily range): BP systolic 110–143; BP diastolic 62–90
[2017-07-12 00:08] LABS: GLUCOSE,POINT OF CARE 190 MG/DL (70-110)
[2017-07-12 00:08] LABS: GLUCOSE,POINT OF CARE 231 MG/DL (70-110)
[2017-07-12 04:55] LABS: HEMATOCRIT 25.2 % (41-53); HEMOGLOBIN 7.8 g/dL (13.5-17.5); MEAN CORPUSCULAR HEMOGLOBIN 24.2 pg (26.0-34.0); MEAN CORPUSCULAR VOLUME 78 fL (80-100); PLATELET COUNT (AUTO) 142 K/uL (150-450); RED BLOOD CELL COUNT(AUTO) 3.22 MIL/uL (4.50-5.90); RED CELL DISTRIBUTION WIDTH 28.3 % (11.5-14.5)
[2017-07-12 05:02] LABS: CALCIUM, TOTAL 8.4 mg/dL (8.8-10.5); CREATININE 3.92 mg/dL (0.60-1.30); POTASSIUM 3.7 mmol/L (3.5-5.1)
[2017-07-12] MEDS: INSULIN REGULAR, HUMAN 100 UNITS/ML SQ PRN ×4 (05:24→23:55)
[2017-07-12] MEDS ORDERED: SODIUM CHLORIDE 0.9% 250 ML IV ONE (05:31)
[2017-07-12 06:57] LABS: BAND NEUTROPHILS % (MANUAL) 1 % (1-5); EOSINOPHILS % (MANUAL) 6 % (1-6); LYMPHOCYTES % (MANUAL) 24 % (22-44); MONOCYTES % (MANUAL) 3 % (2-9); SEGMENTED NEUTROPHILS % 66 % (40-70)
[2017-07-12] MEDS ORDERED: FUROSEMIDE 40 MG/4 ML VIAL IVP SCH (09:00)
[2017-07-12] MEDS: MULTIVITAMINS WITH MINERALS, THERAPEUTIC 15 ML UDCUP NG SCH (09:28)
[2017-07-12] MEDS: AMINO ACIDS/PROTEIN HYDROLYS 30 ML TUBE PO SCH (09:28)
[2017-07-12] MEDS: PRAVASTATIN SODIUM 20 MG TABLET PO SCH (09:29)
[2017-07-12] MEDS: MUPIROCIN CALCIUM 2% 22 GM OINTMENT NASAL SCH ×2 (09:29→20:31)
[2017-07-12] MEDS: MetroNIDAZOLE 500 MG TABLET PO SCH ×3 (09:29→23:50)
[2017-07-12] MEDS: PANTOPRAZOLE SODIUM 40 MG/VIAL IVP SCH (09:29)
[2017-07-12] MEDS: ASPIRIN 81 MG CHEWABLE TABLET PO SCH (09:29)
[2017-07-12 20:02] LABS: GLUCOSE,POINT OF CARE 205 MG/DL (70-110)
[2017-07-12 20:02] LABS: GLUCOSE,POINT OF CARE 172 MG/DL (70-110)
[2017-07-12] MEDS: CefTRIAXone SODIUM 2 GM in DEXTROSE 5%-WATER 50 ML IV SCH (20:30)
[2017-07-13] MEDS: INSULIN REGULAR, HUMAN 100 UNITS/ML SQ PRN ×4 (06:38→20:51)
[2017-07-13 06:39] LABS: GLUCOMETER DEV NAME(LOC) 5N 1M; GLUCOSE,POINT OF CARE 160 MG/DL (70-110)
[2017-07-13 06:39] LABS: GLUCOMETER DEV NAME(LOC) 5N 1M; GLUCOSE,POINT OF CARE 224 MG/DL (70-110)
[2017-07-13 07:45] VITALS: BP 124/78
[2017-07-13] MEDS: ASPIRIN 81 MG CHEWABLE TABLET PO SCH (08:18)
[2017-07-13] MEDS: PRAVASTATIN SODIUM 20 MG TABLET PO SCH (08:18)
[2017-07-13] MEDS: PANTOPRAZOLE SODIUM 40 MG/VIAL IVP SCH (08:18)
[2017-07-13] MEDS: MetroNIDAZOLE 500 MG TABLET PO SCH ×3 (08:35→23:59)
[2017-07-13] MEDS: MULTIVITAMINS WITH MINERALS, THERAPEUTIC 15 ML UDCUP NG SCH (08:35)
[2017-07-13] MEDS: AMINO ACIDS/PROTEIN HYDROLYS 30 ML TUBE PO SCH (08:35)
[2017-07-13 11:48] VITALS: BP 131/86
[2017-07-13] MEDS: MUPIROCIN CALCIUM 2% 22 GM OINTMENT NASAL SCH ×2 (11:58→20:00)
[2017-07-13 13:09] LABS: CALCIUM, TOTAL 8.4 mg/dL (8.8-10.5); CREATININE 3.76 mg/dL (0.60-1.30); MAGNESIUM 1.9 mg/dL (1.80-2.40); PHOSPHORUS 2.7 mg/dL (2.5-4.9); POTASSIUM 3.7 mmol/L (3.5-5.1)
[2017-07-13 15:55] VITALS: BP 124/75
[2017-07-13 18:57] LABS: GLUCOMETER DEV NAME(LOC) 5N 2R; GLUCOSE,POINT OF CARE 192 MG/DL (70-110)
[2017-07-13 18:57] LABS: GLUCOMETER DEV NAME(LOC) 5N 2R; GLUCOSE,POINT OF CARE 240 MG/DL (70-110)
[2017-07-13 19:53] VITALS: BP 121/71
[2017-07-13] MEDS: CefTRIAXone SODIUM 2 GM in DEXTROSE 5%-WATER 50 ML IV SCH (20:00)
[2017-07-13 23:21] VITALS: BP 119/68
[2017-07-14 04:58] VITALS: BP 135/75
[2017-07-14 06:14] LABS: BASOPHILS % (AUTO) 0.2 % (0.0-2.0); HEMATOCRIT 28.6 % (41-53); HEMOGLOBIN 8.9 g/dL (13.5-17.5); LYMPHOCYTES # (AUTO) 1.2 K/uL (1.0-4.8); LYMPHOCYTES % (AUTO) 10.8 % (22.0-44.0); MEAN CORPUSCULAR HEMOGLOBIN 24.4 pg (26.0-34.0); MEAN CORPUSCULAR VOLUME 79 fL (80-100); MONOCYTES # (AUTO) 0.7 K/uL (0.1-1.0); MONOCYTES % (AUTO) 6.4 % (2.0-9.0); NEUTROPHILS # (AUTO) 8.8 K/uL (1.8-7.7); NEUTROPHILS % (AUTO) 77.6 % (40.0-70.0); PLATELET COUNT (AUTO) 230 K/uL (150-450); RED BLOOD CELL COUNT(AUTO) 3.63 MIL/uL (4.50-5.90); RED CELL DISTRIBUTION WIDTH 28.3 % (11.5-14.5)
[2017-07-14] MEDS: INSULIN REGULAR, HUMAN 100 UNITS/ML SQ PRN ×2 (06:22→11:53)
[2017-07-14 06:35] LABS: CALCIUM, TOTAL 8.5 mg/dL (8.8-10.5); CREATININE 3.47 mg/dL (0.60-1.30); POTASSIUM 3.7 mmol/L (3.5-5.1)
[2017-07-14 07:24] VITALS: BP 110/69
[2017-07-14] MEDS: PRAVASTATIN SODIUM 20 MG TABLET PO SCH (08:01)
[2017-07-14] MEDS: ASPIRIN 81 MG CHEWABLE TABLET PO SCH (08:01)
[2017-07-14] MEDS: MetroNIDAZOLE 500 MG TABLET PO SCH ×3 (08:01→23:50)
[2017-07-14] MEDS: AMINO ACIDS/PROTEIN HYDROLYS 30 ML TUBE PO SCH (08:02)
[2017-07-14] MEDS: MUPIROCIN CALCIUM 2% 22 GM OINTMENT NASAL SCH ×2 (08:02→21:04)
[2017-07-14] MEDS: MULTIVITAMINS WITH MINERALS, THERAPEUTIC 15 ML UDCUP NG SCH (08:02)
[2017-07-14] MEDS: PANTOPRAZOLE SODIUM 40 MG/VIAL IVP SCH (08:02)
[2017-07-14 08:07] LABS: MAGNESIUM 1.9 mg/dL (1.80-2.40); PHOSPHORUS 2.5 mg/dL (2.5-4.9); VANCOMYCIN,RANDOM 21.1 mcg/mL (25.0-50.0)
[2017-07-14] MEDS ORDERED: VANCOMYCIN HCL 1 GM/D5% WATER 200 ML IV ONE (11:00)
[2017-07-14 11:16] VITALS: BP 118/72
[2017-07-14] MEDS ORDERED: DEXTROSE 50%-WATER 25 GM/50 ML SYRINGE IVP PRN (13:15)
[2017-07-14] MEDS ORDERED: DEXTROSE 5%-WATER 1,000 ML IV ONE (13:30)
[2017-07-14 15:48] VITALS: BP 128/66
[2017-07-14] MEDS: INSULIN ASPART 100 UNITS/ML SQ PRN ×2 (17:49→21:52)
[2017-07-14 17:53] LABS: GLUCOMETER DEV NAME(LOC) 5N 1M; GLUCOSE,POINT OF CARE 245 MG/DL (70-110)
[2017-07-14 17:53] LABS: GLUCOMETER DEV NAME(LOC) 5N 1M; GLUCOSE,POINT OF CARE 251 MG/DL (70-110)
[2017-07-14 19:47] VITALS: BP 133/78
[2017-07-14] MEDS: CefTRIAXone SODIUM 2 GM in DEXTROSE 5%-WATER 50 ML IV SCH (21:04)
[2017-07-14 23:53] VITALS: BP 126/78
[2017-07-15 00:42] LABS: GLUCOMETER DEV NAME(LOC) 5N 2R; GLUCOSE,POINT OF CARE 205 MG/DL (70-110)
[2017-07-15 00:42] LABS: GLUCOMETER DEV NAME(LOC) 5N 2R; GLUCOSE,POINT OF CARE 352 MG/DL (70-110)
[2017-07-15 00:42] LABS: GLUCOMETER DEV NAME(LOC) 5N 2R; GLUCOSE,POINT OF CARE 332 MG/DL (70-110)
[2017-07-15 00:42] LABS: GLUCOMETER DEV NAME(LOC) 5N 2R; GLUCOSE,POINT OF CARE 260 MG/DL (70-110)
[2017-07-15 07:53] VITALS: BP 135/100
[2017-07-15] MEDS: MetroNIDAZOLE 500 MG TABLET PO SCH (08:13)
[2017-07-15] MEDS: MUPIROCIN CALCIUM 2% 22 GM OINTMENT NASAL SCH (08:13)
[2017-07-15] MEDS: ASPIRIN 81 MG CHEWABLE TABLET PO SCH (08:13)
[2017-07-15] MEDS: PANTOPRAZOLE SODIUM 40 MG/VIAL IVP SCH (08:13)
[2017-07-15] MEDS: MULTIVITAMINS WITH MINERALS, THERAPEUTIC 15 ML UDCUP NG SCH (08:13)
[2017-07-15] MEDS: AMINO ACIDS/PROTEIN HYDROLYS 30 ML TUBE PO SCH (08:14)
[2017-07-15] MEDS: PRAVASTATIN SODIUM 20 MG TABLET PO SCH (08:21)
[2017-07-15 10:08] LABS: BASOPHILS % (AUTO) 0.2 % (0.0-2.0); EOSINOPHILS % (AUTO) 6.7 % (1.0-6.0); HEMATOCRIT 28.3 % (41-53); HEMOGLOBIN 8.8 g/dL (13.5-17.5); LYMPHOCYTES # (AUTO) 1.2 K/uL (1.0-4.8); LYMPHOCYTES % (AUTO) 11.6 % (22.0-44.0); MEAN CORPUSCULAR HEMOGLOBIN 24.5 pg (26.0-34.0); MEAN CORPUSCULAR HGB CONC 30.9 G/dL (31.0-37.0); MEAN CORPUSCULAR VOLUME 79 fL (80-100); MONOCYTES # (AUTO) 0.5 K/uL (0.1-1.0); NEUTROPHILS # (AUTO) 7.9 K/uL (1.8-7.7); NEUTROPHILS % (AUTO) 76.5 % (40.0-70.0); PLATELET COUNT (AUTO) 289 K/uL (150-450); RED BLOOD CELL COUNT(AUTO) 3.58 MIL/uL (4.50-5.90); RED CELL DISTRIBUTION WIDTH 28.1 % (11.5-14.5)
[2017-07-15 10:24] LABS: ALBUMIN 2.3 g/dL (3.4-5.0); BILIRUBIN,TOTAL 0.3 mg/dL (0.1-1.0); CALCIUM, TOTAL 8.6 mg/dL (8.8-10.5); CREATININE 3.09 mg/dL (0.60-1.30); MAGNESIUM 1.6 mg/dL (1.80-2.40); PHOSPHORUS 2.6 mg/dL (2.5-4.9); TOTAL PROTEIN, SERUM 7.4 g/dL (6.4-8.2)
[2017-07-15 11:24] VITALS: BP 138/77
[2017-07-15] MEDS: INSULIN ASPART 100 UNITS/ML SQ PRN (11:55)
[2017-07-15] MEDS ORDERED: ASPI81TA39 PO (12:55)
[2017-07-15] MEDS ORDERED: CEFX1I IM (12:56)
[2017-07-15] MEDS ORDERED: METR250 PO (12:57)
[2017-07-15] MEDS ORDERED: MUPI1OIN4 NS (12:57)
[2017-07-15] MEDS ORDERED: PANT40TA25 IVP (12:58)
[2017-07-15] MEDS ORDERED: PRAV20TA4 PO (12:58)
[2017-07-15] MEDS ORDERED: CARVEDILOL 3.125 MG TABLET PO SCH (14:15)
[2017-07-15] MEDS ORDERED: HEPARIN SODIUM,PORCINE 5,000 UNITS/ML VIAL SQ SCH (21:00)
[2017-07-16] MEDS ORDERED: ISOSORB DINIT/HYDRALAZINE HCL 20-37.5 MG TABLET PO SCH (09:00)
[2017-07-16 17:28] LABS: GLUCOMETER DEV NAME(LOC) 5N 1M; GLUCOSE,POINT OF CARE 212 MG/DL (70-110)
[2017-07-16 17:28] LABS: GLUCOMETER DEV NAME(LOC) 5N 1M; GLUCOSE,POINT OF CARE 140 MG/DL (70-110)
== END 2017-07-15 16:00 | DRG 853 ==
LOC: EDBD 10:11 → EMS 10:11 → ICU 14:11 → 5N 07-12 16:15
PROVIDERS: ADMIT Internal Medicine; ATTEND Internal Medicine
PROC: 0BH17EZ Insertion of Endotracheal Airway into Trachea, Via Natural or Artificial Opening (ICD-10-PCS; principal; 2017-07-04)
PROC: 5A12012 Performance of Cardiac Output, Single, Manual (ICD-10-PCS; 2017-07-04)
PROC: 5A1955Z Respiratory Ventilation, Greater than 96 Consecutive Hours (ICD-10-PCS; 2017-07-04)
PROC: 02HV33Z Insertion of Infusion Device into Superior Vena Cava, Percutaneous Approach (ICD-10-PCS; 2017-07-04)
PROC: B548ZZA Ultrasonography of Superior Vena Cava, Guidance (ICD-10-PCS; 2017-07-04)
PROC: 4B02XTZ Measurement of Cardiac Defibrillator, External Approach (ICD-10-PCS; 2017-07-04)
PROC: 0JBQ0ZZ Excision of Right Foot Subcutaneous Tissue and Fascia, Open Approach (ICD-10-PCS; 2017-07-12)
DX: A41.59 Other Gram-negative sepsis (principal); J96.00 Acute respiratory failure, unspecified whether with hypoxia or hypercapnia; I49.01 Ventricular fibrillation; K72.00 Acute and subacute hepatic failure without coma; E43 Unspecified severe protein-calorie malnutrition; N17.0 Acute kidney failure with tubular necrosis; M72.6 Necrotizing fasciitis; D69.6 Thrombocytopenia, unspecified; E11.22 Type 2 diabetes mellitus with diabetic chronic kidney disease; R57.0 Cardiogenic shock; R65.21 Severe sepsis with septic shock; I50.23 Acute on chronic systolic (congestive) heart failure; T87.43 Infection of amputation stump, right lower extremity; N18.4 Chronic kidney disease, stage 4 (severe); A04.72 Enterocolitis due to Clostridium difficile, not specified as recurrent; E27.40 Unspecified adrenocortical insufficiency; E87.0 Hyperosmolality and hypernatremia; E87.2 Acidosis; I13.0 Hypertensive heart and chronic kidney disease with heart failure and stage 1 through stage 4 chronic kidney disease, or unspecified chronic kidney disease; M62.82 Rhabdomyolysis; I42.9 Cardiomyopathy, unspecified; N39.0 Urinary tract infection, site not specified; I69.354 Hemiplegia and hemiparesis following cerebral infarction affecting left non-dominant side; E11.51 Type 2 diabetes mellitus with diabetic peripheral angiopathy without gangrene; I25.10 Atherosclerotic heart disease of native coronary artery without angina pectoris; Y83.5 Amputation of limb(s) as the cause of abnormal reaction of the patient, or of later complication, without mention of misadventure at the time of the procedure; Y92.89 Other specified places as the place of occurrence of the external cause; D50.9 Iron deficiency anemia, unspecified; E78.5 Hyperlipidemia, unspecified; E83.39 Other disorders of phosphorus metabolism; E83.51 Hypocalcemia; I27.20 Pulmonary hypertension, unspecified; E87.6 Hypokalemia; N40.0 Benign prostatic hyperplasia without lower urinary tract symptoms; Z22.322 Carrier or suspected carrier of Methicillin resistant Staphylococcus aureus; Z86.14 Personal history of Methicillin resistant Staphylococcus aureus infection; Z95.810 Presence of automatic (implantable) cardiac defibrillator; Z78.1 Physical restraint status; Z68.24 Body mass index [BMI] 24.0-24.9, adult; Z88.8 Allergy status to other drugs, medicaments and biological substances
CPT/HCPCS: 31500; 51702; 70450; 71250; 73700; 82805; 82962; 83605; 83735; 84100; 84132; 84145; 85007; 87040; 87070; 87081; 87086; 87147; 87205; 87324; 87449; 87804; 92526; 92610; 92950; 93005; 93306; 94002; 94003; 96365; 96366; 96368; 97110; 97162; 97530; 99291; C9113; J0171; J0610; J0696; J1265; J1940; J1956; J2370; J2543; J2704; J3370; J3475; J3480; J3490; J7040; J7050; J7060; P9046; P9047